=== PATIENT | female | born 1995 | race Caucasian/White ===

== ENCOUNTER 2019-11-05 16:55 | Emergency (ER) | payer BC, OTHER ==
[~2019-11-05] VITALS: Ht 149.9 cm; Wt 50.9 kg
[~2019-11-05 16:55] MED LIST: flovent
[2019-11-05 16:59] VITALS: BP 132/60
[2019-11-05] MEDS ORDERED: diphenhydrAMINE HCL 25 MG CAPSULE PO ONE (17:15)
[2019-11-05] MEDS ORDERED: LIDOCAINE 1% PF 2 ML VIAL. INJ ONE (17:15)
[2019-11-05] MEDS ORDERED: cefTRIAXone IM 1 GM VIAL IM ONE (17:15)
[2019-11-05] MEDS ORDERED: DOXYCYCLINE HYCLATE 100 MG TABLET PO ONE (17:15)
[2019-11-05] MEDS ORDERED: methylPREDNISolone SOD SUCC PF 125 MG/2 ML VIAL. IM ONE (17:15)
--- NOTE | 2019-11-05 18:40 | PHYS DOC ---
Past Medical History Past Medical History: Asthma, Other Additional Past Medical Histor: seasonal allergies (YOAN JIMENES APRN) Past Surgical History: Other Additional Past Surgical Histo: rhinitis sx, deviated septum sx (YOAN JIMENES APRN) Smoking Status: Never Smoker Alcohol Use: None Drug Use: None (YOAN JIMENES APRN) General Adult EDM: Chief Complaint: INSECT BITE HPI: HPI: Patient is a 24 year old female who presents to the ED today complaining of an insect bite to the right thigh that she has had for 3 days. Patient believes it is a spider bite though she never saw the spider bite her. She went to urgent care yesterday and was started on Augmentin prednisone and Benadryl. She states that the area of redness has grown bigger. Denies any fever. Denies any difficulty breathing. (YOAN JIMENES APRN) Review of Systems: Review of Systems: Constitutional: Denies fever or chills. [] Eyes: Denies change in visual acuity. [] HENT: Denies nasal congestion or sore throat. [] Respiratory: Denies cough or shortness of breath. [] Cardiovascular: Denies chest pain or edema. [] GI: Denies abdominal pain, nausea, vomiting, bloody stools or diarrhea. [] : Denies dysuria. [] Musculoskeletal: Denies back pain or joint pain. [] Integument: Spider bite to the right thigh Neurologic: Denies headache, focal weakness or sensory changes. [] Psychiatric: Denies depression or anxiety. [] (YOAN JIMENES APRN) Heart Score: Risk Factors: Risk Factors: DM, Current or recent (<one month) smoker, HTN, HLP, family history of CAD, obesity. Risk Scores: Score 0 - 3: 2.5% MACE over next 6 weeks - Discharge Home Score 4 - 6: 20.3% MACE over next 6 weeks - Admit for Clinical Observation Score 7 - 10: 72.7% MACE over next 6 weeks - Early Invasive Strategies (YOAN JIMENES APRN) Current Medications: Current Medications Medications (Trade) Dose Ordered Sig/Luis Start Time Stop Time Status Last Admin Dose Admin Ceftriaxone Sodium (Rocephin Im) 1 gm 1X ONCE 11/05/19 17:15 11/05/19 17:16 DC 11/05/19 17:33 1 GM Diphenhydramine HCl (Benadryl) 25 mg 1X ONCE 11/05/19 17:15 11/05/19 17:16 DC 11/05/19 17:15 25 MG Doxycycline Hyclate (Vibra-Tab) 100 mg 1X ONCE 11/05/19 17:15 11/05/19 17:17 DC 11/05/19 17:31 100 MG Lidocaine HCl (Xylocaine-Mpf 1% 2ml Vial) 2 ml 1X ONCE 11/05/19 17:15 11/05/19 17:16 DC 11/05/19 17:33 2 ML Methylprednisolone Sodium Succinate (SOLU-Medrol 125MG VIAL) 125 mg 1X ONCE 11/05/19 17:15 11/05/19 17:16 DC 11/05/19 17:32 125 MG (YOAN JIMENES BREAKFAST MANAGER) Allergies: Allergies: Allergies Coded Allergies Type Severity Reaction Last Updated Verified No Known Drug Allergies 01/18/14 No (DARRENUNGReganYOAN BREAKFAST MANAGER) Physical Exam: PE: Constitutional: Well developed, well nourished, no acute distress, non-toxic appearance. [] HENT: Normocephalic, atraumatic, bilateral external ears normal, oropharynx moist, no oral exudates, nose normal. [] Eyes: PERRLA, EOMI, conjunctiva normal, no discharge. [] Neck: Normal range of motion, no tenderness, supple, no stridor. [] Cardiovascular:Heart rate regular rhythm, no murmur [] Lungs & Thorax: Bilateral breath sounds clear to auscultation [] Abdomen: Bowel sounds normal, soft, no tenderness, no masses, no pulsatile masses. [] Skin: Warm, dry, right proximal thigh with an oval rash with central clearing suspicious of tick bite. Trace amount of similar rash on the abdomen. Back: No tenderness, no CVA tenderness. [] Extremities: No tenderness, no cyanosis, no clubbing, ROM intact, no edema. [] Neurologic: Alert and oriented X 3, normal motor function, normal sensory function, no focal deficits noted. [] Psychologic: Affect normal, judgement normal, mood normal. [] (MUTUNGA,YOAN BREAKFAST MANAGER) Current Patient Data: Vital Signs: Vital Signs Date Time Temp Pulse Resp B/P (MAP) Pulse Ox O2 Delivery O2 Flow Rate FiO2 6/6/20 16:59 99.1 82 20 132/60 (84) 97 Room Air 99.1 (YOAN JIMENES APRN) EKG: EKG: [] (YOAN JIMENES APRN) Radiology/Procedures: Radiology/Procedures: [] (YOAN JIMENES APRN) Course & Med Decision Making: Course & Med Decision Making Pertinent Labs and Imaging studies reviewed. (See chart for details) This is a 24-year-old female patient who presents to the ED today with a rash suspicious of tick bite. Patient was seen at urgent care and started on Augmentin and prednisone and Benadryl yesterday with no improvement. Today patient was given Solu-Medrol Benadryl Rocephin IM and started on doxycycline. Discharged on doxycycline instructed to stop the Augmentin. Follow-up with primary care doctor in 1 to 2 weeks. (YOAN JIMENES APRN) Dragon Disclaimer: Dragon Disclaimer: This electronic medical record was generated, in whole or in part, using a voice recognition dictation system. (YOAN JIMENES APRN) Departure Departure Impression: Primary Impression: Insect bite Qualified Codes: S70.361A - Insect bite (nonvenomous), right thigh, initial encounter; W57.XXXA - Bitten or stung by nonvenomous insect and other nonvenomous arthropods, initial encounter Disposition: 01 HOME, SELF-CARE Condition: STABLE Referrals: CELESTINA SAMUELS (PCP) follow up in 1-2 weeks Patient Instructions: Insect Bite, [id number] Additional Instructions: You were evaluated in the emergency room for an insect bite on your right thigh. Stop taking Augmentin and start taking doxycycline. Continue taking prednisone and Benadryl. Keep the area clean and dry. Come back to the ED at any point symptoms worsen. Scripts Doxycycline Hyclate (DOXYCYCLINE HYCLATE) 100 Mg Tablet 1 TAB PO BID, #42 TAB Prov: YOAN JIMENES APRN 11/05/19 Justicifation of Admission Dx: Justifications for Admission: Justification of Admission Dx: N/A (YOAN JIMENES APRN) Attending Signature Attending Signature I have participated in the care of this patient and I have reviewed and agree with all pertinent clinical information above including history, exam, and recommendations. (NIEVES KELLY DO) YOAN JIMENES APRN Nov 05, 2019 18:40 NIEVES KELLY DO Nov 05, 2019 19:08
[2019-11-05] MEDS ORDERED: DOXY100T PO (18:47)
== END 2019-11-05 18:50 | disposition home or self-care (01) ==
LOC: ER 16:55
DX: S70.361A Insect bite (nonvenomous), right thigh, initial encounter (principal); J45.909 Unspecified asthma, uncomplicated; Z98.890 Other specified postprocedural states; W57.XXXA Bitten or stung by nonvenomous insect and other nonvenomous arthropods, initial encounter; Y93.89 Activity, other specified; Y92.89 Other specified places as the place of occurrence of the external cause; Y99.8 Other external cause status
CPT/HCPCS: 96372; 99284; J0696; J2930; J3490; Q0163